=== PATIENT | male | born 1950 | race Caucasian/White ===

== ENCOUNTER 2020-05-14 16:10 | Emergency (ER) | payer OTHER ==
[2020-05-14 16:21] VITALS: BMI 29.5
--- NOTE | 2020-05-14 16:23 | PDOC ---
History of Present Illness - General Chief Complaint: Redness To Affected Area Stated Complaint: REDNESS TO TESTICLES Time Seen by Provider: 05/14/20 16:14 - History of Present Illness Initial Comments: The pt is a 69M w/ a history of DM who presents for evaluation of 4-5 days of R testicular an proximal thigh erythema and discomfort. The pt reports erythema, swelling, and pain. The pain is worse with walking and touch. He has not tried anything for his pain. He has been washing the area daily with soap and water. Denies fevers/chills, penile pain/redness/swelling, denies spread to L testicle or perineum Denies recent illness, fatigue, malaise, myalgias, cough, travel 05/14/20 16:22 Past History - Medical History Allergies/Adverse Reactions: Allergies Allergy/AdvReac Type Severity Reaction Status Date / Time No Known Allergies Allergy Verified 05/14/20 16:11 Home Medications: Ambulatory Orders Metformin HCl [Glucophage] 1,000 mg PO BID 05/14/20 Ramipril [Altace] 10 mg PO DAILY 05/14/20 Anemia: No Asthma: No Cancer: No Cardiac Disorders: No CVA: No COPD: No CHF: No Dementia: No Diabetes: Yes GI Disorders: No Disorders: No HTN: Yes Hypercholesterolemia: No Liver Disease: No Seizures: No Thyroid Disease: No - Surgical History Abdominal Surgery: No Appendectomy: No Cardiac Surgery: No Cholecystectomy: No Lung Surgery: No Neurologic Surgery: No Orthopedic Surgery: No - Psycho-Social/Smoking History Smoking History: Never smoked Have you smoked in the past 12 months: No - Substance Abuse Hx (Audit-C & DAST Scrn) How often the patient has a drink containing alcohol: Never Score: In Men: 4 or > Positive; In Women: 3 or > Positive: 0 Screen Result (Pos requires Nsg. Audit-10AR): Negative In the last yr the pt used illegal drug/Rx for NonMed reason: No Score: Yes response is considered Positive: 0 Screen Result (Positive result requires Nsg. DAST-10): Negative Review of Systems - Review of Systems Able to Perform ROS?: Yes Comments:: GENERAL/CONSTITUTIONAL: No fever or chills. No weakness HEAD, EYES, EARS, NOSE AND THROAT: No change in vision. No change in hearing. No sore throat CARDIOVASCULAR: No chest pain or shortness of breath RESPIRATORY: Denies cough, hemoptysis GASTROINTESTINAL: No nausea, vomiting, diarrhea or constipation GENITOURINARY: No dysuria, no discharge MUSCULOSKELETAL: No joint or muscle swelling or pain. No neck or back pain SKIN: No rash NEUROLOGIC: No headache, vertigo, loss of consciousness, or change in strength/sensation ENDOCRINE: No increased thirst. No abnormal weight change HEMATOLOGIC/LYMPHATIC: No anemia, easy bleeding, or history of blood clots ALLERGIC/IMMUNOLOGIC: No hives or skin allergy 05/14/20 16:31 Is the patient limited Tristanian proficient: No *Physical Exam - Vital Signs Last Vital Signs Temp Pulse Resp BP Pulse Ox 0/0 L 05/14/20 16:10 - Physical Exam GENERAL: Awake, alert, and oriented to person/place/time, in no acute distress HEAD: No signs of trauma, normocephalic, atraumatic EYES: PERRLA, EOMI, sclera anicteric, conjunctiva clear ENT: Hearing grossly normal, nares patent, oropharynx clear without exudates. Moist mucosa LUNGS: No distress, speaks in full sentences, clear to auscultation bilaterally HEART: Regular rate and rhythm, normal S1 and S2, no murmurs appreciated, peripheral pulses normal and equal bilaterally ABDOMEN: Soft, nontender, normoactive bowel sounds. No guarding, no rebound : No penile swelling or erythema, no discharge, R scrotal erythema with induration and fluctuance, R medial thigh erythema with warmth, no crepitus, no open wound EXTREMITIES: Normal inspection, Normal range of motion NEUROLOGICAL: Cranial nerves II through XII grossly intact. Normal speech, normal gait, no focal sensorimotor deficits SKIN: Other than noted above skin is warm, dry 05/14/20 16:33 ED Treatment Course - LABORATORY CBC & Chemistry Diagram: 05/14/20 16:30 05/14/20 16:30 Medical Decision Making - Medical Decision Making The pt is a 69M w/ a history of DM who presents for evaluation of 4-5 days of R testicular an proximal thigh erythema and discomfort. Consider jose francisco's gangrene, cellulitis, abscess, folliculitis ED Course CMP, CBC Bedside US w/ evidence of R scrotal abscess CT Pelvis w/ contrast BGM 500s Will obtain a rectal temperature However pt not tachycardic or hypotensive at this time 05/14/20 16:35 No leukocytosis No anemia 05/14/20 17:03 Hyperglyemia noted, pt reports being compliant with Metformin, no AG, and receiving IVF Hyponatremia noted, pt receiving NS No ISIDORO LFTs unremarkable Remainder of Lytes overall unremarkable Pending CT pelvis 05/14/20 17:11 Discharge - Discharge Information Problems reviewed: Yes Clinical Impression/Diagnosis: Abscess of scrotal wall Condition: Stable - Follow up/Referral - Patient Discharge Instructions - Post Discharge Activity
[2020-05-14 16:26] VITALS: BP 138/79; PULSE 86
[2020-05-14] MEDS ORDERED: ACETAMINOPHEN 325 MG TABLET (FP) PO ONE (16:28)
[2020-05-14] MEDS ORDERED: SODIUM CHLORIDE 0.9% 500 ML INFUS.BAG IV ONE (16:30)
[2020-05-14] MEDS ORDERED: ACETAMINOPHEN 325 MG TABLET (FP) ONE (16:36)
[2020-05-14 16:53] VITALS: TEMP 99.2
[2020-05-14 16:56] LABS: BASO % 0.8 % (0-2.0); EOS % 0.8 % (0-4.5); HEMATOCRIT 40.7 % (35.4-49); HEMOGLOBIN 14.1 GM/dl (11.7-16.9); LYMPH % 11.5 % (8-40); MCH 33.3 pg (25.7-33.7); MCHC 34.7 g/dl (32.0-35.9); MEAN CELL VOLUME 96.2 fl (80-96); MEAN PLT VOLUME 9.3 fl (7.5-11.1); MONO % 11.3 % (3.8-10.2); NEUT % 75.6 % (42.8-82.8); PLATELET COUNT 162 K/MM3 (134-434); RBC 4.23 M/mm3 (4.00-5.60); RDW 11.9 % (11.9-15.9); WHITE BLOOD COUNT 10.7 K/mm3 (4.0-10.8)
[2020-05-14 17:03] LABS: ALBUMIN 3.4 g/dl (3.4-5.0); CALCIUM 8.6 mg/dl (8.5-10); POTASSIUM 4.3 mmol/L (3.5-5.1); TOT PROT 6.5 g/dl (6.4-8.2)
--- NOTE | 2020-05-14 17:25 | PDOC ---
Attending Attestation - Resident Resident Name: Ankur Levy - ED Attending Attestation I have performed the following: I have examined & evaluated the patient, The case was reviewed & discussed with the resident, I agree w/resident's findings & plan, Exceptions are as noted - HPI HPI: 05/14/20 18:57 69 years old poorly compliant diabetic presents to the ED with for 5-day history of right testicular pain swelling erythema discomfort. Previous history of cellulitis to the same area. Denies fever chills chest pain shortness of breath nausea vomiting diarrhea. - Physicial Exam PE: 05/14/20 18:57 Vitals: Triage Vital signs reviewed General Appearance: No acute distress, well nourished well developed, Head: Atraumatic, Cardiac: Regular rate and rhythym, no murmurs, no rubs, no gallops, Lungs: Clear to auscultation bilateral, good air movement bilaterally, Abdomen: Soft, non distended, normal bowel sounds, non tender to palpation Genitourinary:Redness and swelling to right testicle and right inner thigh. Firm indurated mass to right scrotal wall Rectal: Exam deferred Extremities: Full range of motion to all extremities, no cyanosis, clubbing, or edema Skin: Warm and dry, no rashes or lesions, no rash, no petechiae Psych: Normal mood, normal affect - Medical Decision Making 05/14/20 18:58 Can you should page for me please yet please of the patient Madelyn yes please thank you fingerstick critically high greater than 500 poorly controlled diabetes with scrotal cellulitis plus minus possible abscess We will check labs CT and reassess CAT scan with findings of large abscess will consult urology, and admit to medicine for IV abx, glycemic control and further management. Dr. Neda Hope to follow up return call from Discharge - Discharge Information Problems reviewed: Yes Clinical Impression/Diagnosis: Abscess of scrotal wall Condition: Stable Disposition: HOME - Follow up/Referral - Patient Discharge Instructions - Post Discharge Activity
[2020-05-14] MEDS ORDERED: SODIUM CHLORIDE 0.9% 1000 ML INFUS.BAG IV ONE (18:14)
[2020-05-14] MEDS ORDERED: CLINDAMYCIN 600MG PREMIX IVPB 600 MG/50 ML BAG IVPB ONE (19:07)
[2020-05-14] MEDS ORDERED: CLINDAMYCIN PHOSPHATE 600 MG/4 ML VIAL ONE (19:14)
[2020-05-14] MEDS ORDERED: INSULIN REGULAR HUMAN 100 UNITS/ML *VIAL IVPUSH ONE (19:27)
[2020-05-14] MEDS ORDERED: INSULIN REGULAR HUMAN 100 UNITS/ML *VIAL ONE (19:37)
--- NOTE | 2020-05-14 19:49 | PDOC ---
*Physical Exam - Vital Signs Last Vital Signs Temp Pulse Resp BP Pulse Ox 99.2 F 86 19 138/79 96 05/14/20 16:50 05/14/20 16:10 05/14/20 16:10 05/14/20 16:10 05/14/20 16:10 ED Treatment Course - LABORATORY CBC & Chemistry Diagram: 05/14/20 16:30 05/14/20 16:30 - ADDITIONAL ORDERS Additional order review: Laboratory Results 05/14/20 05/14/20 16:30 16:23 Sodium 129 L Potassium 4.3 Chloride 94 L Carbon Dioxide 20 L Anion Gap 15 BUN 18.0 Creatinine 1.0 Est GFR (CKD-EPI)AfAm 87.99 Est GFR (CKD-EPI)NonAf 75.92 POC Glucometer 538 Random Glucose 502 H* Calcium 8.6 Total Bilirubin 1.0 AST 29 ALT 34 Alkaline Phosphatase 112 Total Protein 6.5 Albumin 3.4 05/14/20 05/14/20 16:30 16:23 RBC 4.23 MCV 96.2 H MCHC 34.7 RDW 11.9 MPV 9.3 Neutrophils % 75.6 Lymphocytes % 11.5 Monocytes % 11.3 H Eosinophils % 0.8 Basophils % 0.8 POC Glucometer 538 - RADIOLOGY Radiology Studies Ordered: Category Date Time Status CHEST X-RAY PORTABLE* [RAD] Stat Radiology 05/14/20 19:27 Ordered - Medications Given in the ED: ED Medications Discontinued Medications Generic Name Dose Route Start Last Admin Trade Name Freq PRN Reason Stop Dose Admin Acetaminophen 975 mg 05/14/20 16:28 05/14/20 16:40 Tylenol - PO 05/14/20 16:29 975 mg ONCE ONE Administration Clindamycin Phosphate 600 mg in 50 mls @ 100 mls/hr 05/14/20 19:07 05/14/20 19:19 Cleocin 600 Mg Premix Ivpb - IVPB 05/14/20 19:36 100 mls/hr ONCE ONE Administration Insulin Human Regular 10 units 05/14/20 19:27 05/14/20 19:40 Novolin R Vial *For Ivpush Or Iv Drip Only* IVPUSH 05/14/20 19:28 10 units ONCE ONE Administration Sodium Chloride 1,000 ml 05/14/20 16:30 05/14/20 16:40 Normal Saline - IV 05/14/20 16:31 1,000 ml ONCE ONE Administration Sodium Chloride 1,000 ml 05/14/20 18:14 05/14/20 18:10 Normal Saline - IV 05/14/20 18:15 1,000 ml ONCE ONE Administration ED Progress Note - Progress Note Progress Note: 05/14/20 19:43 Care this patient was transferred to sd at 1900 hrs. However patient was already admitted prior to my assuming care of this patient. I was waiting for a call back from the urologist to let the urologist know that he was being admitted. However when I talked to the urologist I gave history to the urologist who recommended that the patient not be admitted that he would see him in the office at 9:00 in the morning to incision and drain the abscess. Patient did have an elevated glucose which he was given insulin for otherwise he had a normal white count there was no left shift there was no anion gap and the rest of his labs were unremarkable Discharge - Discharge Information Problems reviewed: Yes Clinical Impression/Diagnosis: Abscess of scrotal wall Condition: Stable - Admission No - Follow up/Referral Referrals: Eliel Adame MD [Staff Physician] - - Patient Discharge Instructions Additional Instructions: I spoke with the urologist Dr. Adame who will see you in his office at 9 AM in the morning I have given you his phone number and his office is located at [address] [address] in [facility]. Return to the emergency department immediately with ANY new, persistent or worsening symptoms. Continue any medications as previously prescribed by your physician. You should follow up with your primary doctor as soon as possible regarding today's emergency department visit. . Please make sure your doctor reviews the results of your emergency evaluation. Thank you for coming to the Emergency Department today for your care. It was a pleasure to see you today. Please note that your evaluation is INCOMPLETE until you follow-up with your doctor. - Post Discharge Activity
[2020-05-14] MEDS ORDERED: SODIUM CHLORIDE 1,000 ML IV SCH (20:00)
[2020-05-14] MEDS ORDERED: INSULIN (NOVOLOG) ASPART 100 UNITS/ML 10ML VIAL SQ ONE (20:09)
--- OUTSIDE RECORDS SUMMARY | 2020-05-14 20:12 | XMS ---
:1950 Author Organization [facility] Support Name Relationship Address Phone RE Unavailable Unavailable Unavailable SE Unavailable Unavailable Unavailable [address] [place] [address] Re-disclosure Warning The records that you are about to access may contain information from federally- assisted alcohol or drug abuse programs. If such information is present, then the following federally mandated warning applies: This information has been disclosed to you from records protected by federal confidentiality rules (42 CFR part 2). The federal rules prohibit you from making any further disclosure of this information unless further disclosure is expressly permitted by the written consent of the person to whom it pertains or as otherwise permitted by 42 CFR part 2. A general authorization for the release of medical or other information is NOT sufficient for this purpose. The Federal rules restrict any use of the information to criminally investigate or prosecute any alcohol or drug abuse patient.The records that you are about to access may contain highly sensitive health information, the redisclosure of which is protected by Article 27-F of the [facility] Public Health law. If you continue you may haveaccess to information: Regarding HIV / AIDS; Provided by facilities licensed or operated by the [facility] Office of Mental Health; or Provided by the [facility] Office for People With Developmental Disabilities. If such information is present, then the following [facility] mandated warning applies: This information has been disclosed to you from confidential records which are protected by state law. State law prohibits you from making any further disclosure of this information without the specific written consent of the person to whom it pertains, or as otherwise permitted by law. Any unauthorized further disclosure in violation of state law may result in a fine or penitentiary sentence or both. A general authorization for the release of medical or other information is NOT sufficient authorization for further disclosure. Insurance Providers Payer name Policy type Policy ID Covered Covered green party's Policy P pranay / Coverage green party ID relationship to [facility] ormation type [employer] [id number] [employer] (MEDICARE) [place] [id number] [facility] (MEDICARE)
[2020-05-14] MEDS ORDERED: INSULIN (NOVOLOG) ASPART 100 UNITS/ML 10ML VIAL ONE (20:13)
[2020-05-14] MEDS ORDERED: HEPARIN NA (PORCINE) 5,000 UNITS/ML 1ML VIAL SQ SCH (22:00)
== END 2020-05-14 20:30 | disposition home or self-care (01) ==
LOC: FER 16:10 → UNDOADMIN 20:07 → FM/S 20:07
PROC: 3E03329 Introduction of Other Anti-infective into Peripheral Vein, Percutaneous Approach (ICD-10-PCS; principal; 2020-05-14)
PROC: 3E033GC Introduction of Other Therapeutic Substance into Peripheral Vein, Percutaneous Approach (ICD-10-PCS; 2020-05-14)
DX: N45.4 Abscess of epididymis or testis (principal)
CPT/HCPCS: 36415; 72193-TC; 80053; 82962; 85025; 99285-25; Q9967

== ENCOUNTER 2021-02-27 15:50 | Emergency (ER) | payer OTHER ==
[2021-02-27 16:02] VITALS: BP 161/92; PULSE 81; TEMP 97.7; BMI 22.6
== END 2021-02-27 17:52 | disposition home or self-care (01) ==
LOC: FER 15:50
DX: S92.491A Other fracture of right great toe, initial encounter for closed fracture (principal)
CPT/HCPCS: 73630-TC-RT-FY; 99283-25

== ENCOUNTER 2021-03-01 17:08 | Emergency (ER) | payer OTHER ==
[2021-03-01 17:31] VITALS: BP 151/85; PULSE 95; TEMP 98.3; BMI 31.0
== END 2021-03-01 17:24 | disposition home or self-care (01) ==
LOC: FER 17:08
DX: S99.921A Unspecified injury of right foot, initial encounter (principal); Z48.00 Encounter for change or removal of nonsurgical wound dressing
CPT/HCPCS: 99281-25

== ENCOUNTER 2023-12-30 13:26 | Observation (INO) | payer BC ==
[2023-12-30] MEDS: SODIUM CHLORIDE 500 ML IV STA (14:37)
[2023-12-30 14:38] LABS: HEMATOCRIT 29.8 % (35.4-49); MCH 28.3 pg (25.7-33.7); MCHC 33.6 g/dl (32.0-35.9); MEAN CELL VOLUME 84.3 fl (80-96); MEAN PLT VOLUME 11.9 fl (7.5-11.1); RBC 3.54 10^6/uL (4.00-5.60); RDW 15.2 % (11.9-15.9); WHITE BLOOD COUNT 5.7 10^3/uL (4.0-10.8)
[2023-12-30 14:40] LABS: INR 1.04 (0.83-1.09); PROTHROMBIN TIME (PATIENT) 11.8 SEC (9.7-13.0)
[2023-12-30 14:50] LABS: ALBUMIN 3.7 g/dl (3.4-5.0); BILIRUBIN,TOTAL 0.4 mg/dl (0.2-1); CALCIUM 8.8 mg/dl (8.5-10.1); CREATININE 1.7 mg/dl (0.6-1.3); POTASSIUM 4.6 mmol/L (3.5-5.1); TOT PROT 6.1 g/dl (6.4-8.2)
[2023-12-30 15:04] LABS: PLATELET ESTIMATE DECREASED
[2023-12-30 16:33] LABS: LACTIC ACID 2.1 mmol/L (0.4-2.0)
[2023-12-30 19:01] VITALS: BMI 26.5
[2023-12-30] MEDS ORDERED: ACETAMINOPHEN 1000 MG/100 ML BAG IVPB PRN (19:26)
[2023-12-30 19:31] LABS: EPITHELIAL CELLS 0-5 /hpf
[2023-12-31 08:22] LABS: HEMATOCRIT 26.5 % (35.4-49); HEMOGLOBIN 8.6 G/dL (11.7-16.9); MCH 27.4 pg (25.7-33.7); MCHC 32.6 g/dl (32.0-35.9); MEAN CELL VOLUME 84.1 fl (80-96); MEAN PLT VOLUME 12.5 fl (7.5-11.1); PLATELET COUNT 43.6 10^3/uL (134-434); RBC 3.15 10^6/uL (4.00-5.60); RDW 15.3 % (11.9-15.9)
[2023-12-31 08:27] LABS: WHITE BLOOD COUNT 6.1 10^3/uL (4.0-10.8)
[2023-12-31 09:03] LABS: ALBUMIN 3.4 g/dl (3.4-5.0); BILIRUBIN,TOTAL 0.4 mg/dl (0.2-1); CALCIUM 8.6 mg/dl (8.5-10.1); CREATININE 1.6 mg/dl (0.6-1.3); POTASSIUM 5.3 mmol/L (3.5-5.1); TOT PROT 5.6 g/dl (6.4-8.2)
[2023-12-31] MEDS: ASPIRIN 81 MG CHEWABLE TABLETS PO SCH (09:17)
[2023-12-31] MEDS: FOLIC ACID 1 MG TABLET (FP) PO SCH (09:17)
[2023-12-31] MEDS: LACTATED RINGERS SOLUTION 1,000 ML/1,000 ML INFUS.BAG IV SCH (09:18)
[2023-12-31] MEDS ORDERED: CLOPIDOGREL BISULFATE 75 MG TABLET (FP) PO SCH (10:00)
[2023-12-31] MEDS: INSULIN ASPART SLIDING SCALE (NOVOLOG) 1 VIAL SQ SCH (11:16)
[2023-12-31] MEDS: ATORVASTATIN CA 40 MG TABLET (FP) PO SCH (21:26)
[2024-01-01 02:16] VITALS: RESP 18
[2024-01-01 08:23] LABS: HEMATOCRIT 25.6 % (35.4-49); HEMOGLOBIN 8.3 G/dL (11.7-16.9); MCH 27.5 pg (25.7-33.7); MCHC 32.3 g/dl (32.0-35.9); MEAN CELL VOLUME 85.2 fl (80-96); MEAN PLT VOLUME 11.8 fl (7.5-11.1); PLATELET COUNT 55.5 10^3/uL (134-434); RBC 3.01 10^6/uL (4.00-5.60); RDW 15.8 % (11.9-15.9); WHITE BLOOD COUNT 6.8 10^3/uL (4.0-10.8)
[2024-01-01 08:39] LABS: ALBUMIN 3.2 g/dl (3.4-5.0); ALK PHOS 65 U/L (45-117); ANION GAP 7 mmol/L (4-13); BILIRUBIN,TOTAL 0.3 mg/dl (0.2-1); CALCIUM 8.2 mg/dl (8.5-10.1); CHLORIDE 109 mmol/L (98-107); CHOLESTEROL 112 mg/dL (50-200); CO2 23 mmol/L (21-32); CREATININE 1.6 mg/dl (0.6-1.3); GLUCOSE,RANDOM 127 mg/dl (74-106); HDL CHOLESTEROL 54 mg/dL (40-60); LDL CHOLESTEROL (ONLY DFH) 42 mg/dL (5-100); MAGNESIUM 1.1 mg/dL (1.8-2.4); PHOSPHOROUS 3.2 (2.5-4.9); POTASSIUM 4.3 mmol/L (3.5-5.1); SGOT/AST 17 U/L (15-37); SGPT/ALT 17 U/L (7-52); SODIUM 139 mmol/L (136-145); TOT PROT 5.2 g/dl (6.4-8.2)
[2024-01-01] MEDS ORDERED: MAGNESIUM SULF 50% (8.12 MEQ/2 ML-1 GM VIAL) IVPB ONE (09:37)
[2024-01-01] MEDS: MAGNESIUM SULFATE IN WATER 2 GM/50 ML IVPB IVPB ONE (10:23)
[2024-01-01 13:58] VITALS: BP 146/78; PULSE 73; TEMP 98.5
== END 2024-01-01 18:52 | disposition home or self-care (01) ==
LOC: FER 13:26 → FM/S 17:46 → INTOOBSV 17:46
PROVIDERS: ATTEND Internal Medicine
PROC: 3E0337Z Introduction of Electrolytic and Water Balance Substance into Peripheral Vein, Percutaneous Approach (ICD-10-PCS; principal; 2023-12-30)
PROC: 3E033GC Introduction of Other Therapeutic Substance into Peripheral Vein, Percutaneous Approach (ICD-10-PCS; 2023-12-30)
DX: D69.6 Thrombocytopenia, unspecified (principal); E11.9 Type 2 diabetes mellitus without complications; I73.9 Peripheral vascular disease, unspecified; I10 Essential (primary) hypertension; E86.0 Dehydration; E78.5 Hyperlipidemia, unspecified; Z89.422 Acquired absence of other left toe(s); Z91.148 Patient's other noncompliance with medication regimen for other reason
CPT/HCPCS: 0241U-QW; 36415; 70450-TC; 71045-TC-FY; 80053; 80061; 81003; 81015; 82962; 83605; 83735; 83880; 84100; 84443; 84484; 85027; 85610; 86850; 86900; 86901; 87040; 87086; 87186; 93005; 93306-TC; 93880-TC; 96365; 96375; 97116-GP; 97162-GP; 99285-25; G0378

== ENCOUNTER 2024-07-01 09:55 | Day surgery (SDC) | payer BC ==
[2024-06-28 11:29] VITALS: BMI 28.0
[2024-07-01] MEDS ORDERED: MIDAZOLAM HCL 2 MG/2 ML SINGLE DOSE VIAL ONE ×2 (11:39→11:57)
[2024-07-01 12:44] VITALS: TEMP 97
[2024-07-01 12:53] VITALS: PULSE 99; RESP 18
[2024-07-01 12:55] VITALS: BP 128/62
== END 2024-07-01 13:25 | disposition home or self-care (01) ==
LOC: FASU-ENDO 09:55
PROVIDERS: ATTEND Internal Medicine Gastroenterology
PROC: 0DB48ZX Excision of Esophagogastric Junction, Via Natural or Artificial Opening Endoscopic, Diagnostic (ICD-10-PCS; 2024-07-01)
PROC: 0DB78ZX Excision of Stomach, Pylorus, Via Natural or Artificial Opening Endoscopic, Diagnostic (ICD-10-PCS; 2024-07-01)
PROC: 0DB68ZX Excision of Stomach, Via Natural or Artificial Opening Endoscopic, Diagnostic (ICD-10-PCS; 2024-07-01)
PROC: 0DJD8ZZ Inspection of Lower Intestinal Tract, Via Natural or Artificial Opening Endoscopic (ICD-10-PCS; principal; 2024-07-01 12:00)
DX: Z12.11 Encounter for screening for malignant neoplasm of colon (principal); K63.5 Polyp of colon; K22.81 Esophageal polyp; K29.70 Gastritis, unspecified, without bleeding; K29.80 Duodenitis without bleeding; D50.9 Iron deficiency anemia, unspecified; Z86.0100 Personal history of colon polyps, unspecified
CPT/HCPCS: 43239; G0105; 82962; 88305-TC; 88342-TC; 93005; 93010